=== PATIENT | male | born 1970 | race Hispanic/Latino ===

== ENCOUNTER 2019-07-11 18:32 | Emergency (ER) | payer SELFPAY ==
[~2019-07-11] VITALS: Ht 167.6 cm; Wt 81.7 kg
== END 2019-07-11 21:13 | disposition home or self-care (01) ==
LOC: ED 18:32
PROC: 0H9NXZZ Drainage of Left Foot Skin, External Approach (ICD-10-PCS; principal; 2019-07-11)
DX: S90.422A Blister (nonthermal), left great toe, initial encounter (principal); L08.9 Local infection of the skin and subcutaneous tissue, unspecified; I10 Essential (primary) hypertension; E11.9 Type 2 diabetes mellitus without complications; X58.XXXA Exposure to other specified factors, initial encounter
CPT/HCPCS: 10060; 87070; 87205; 99283-25

== ENCOUNTER 2022-09-26 11:14 | Emergency (ER) | payer SELFPAY ==
[~2022-09-26] VITALS: Ht 167.6 cm; Wt 81.7 kg
[2022-09-26] MEDS ORDERED: METFORMIN HCL500 MG PO (14:52)
[2022-09-26] MEDS ORDERED: LIPITOR20 MG PO (14:52)
[2022-09-26] MEDS ORDERED: LISINOPRIL5 MG PO (14:59)
[2022-09-26] MEDS ORDERED: GLIPIZIDE ER10 MG PO (14:59)
[2022-09-26] MEDS ORDERED: JANUVIA100 MG PO (15:00)
[2022-09-26] MEDS ORDERED: CLEOCIN HCL300 MG PO (16:04)
[2022-09-26] MEDS ORDERED: CENTANY30 GM TOP (16:38)
== END 2022-09-26 17:09 | disposition home or self-care (01) ==
LOC: ED 11:14
DX: E11.621 Type 2 diabetes mellitus with foot ulcer (principal); L97.529 Non-pressure chronic ulcer of other part of left foot with unspecified severity; L03.032 Cellulitis of left toe; Z79.899 Other long term (current) drug therapy
CPT/HCPCS: 36415; 73660; 80053; 83605; 85025; 96374; 99283-25